=== PATIENT | female | born 1950 | race Caucasian/White ===

== ENCOUNTER 2019-08-25 09:06 | Outpatient (CLI) | payer MEDICARE, SELFPAY ==
--- NOTE | 2019-08-25 09:11 | EST_ITS ---
Patient Info Name: Radha Zaldivar Age: 68 years : 1950 Gender: Female Ht: 66 in Wt: 140 lbs BSA: 1.72 m2 BP: 139 / 69 mmHg Exam Date: 08/25/2019 10:11 AM Exam Location: [facility] Stress Patient Status: Outpatient Admit Date: 08/25/2019 Staff Ordering Physician: Mohsen Cueto PA-C Concaver: Yamila Ojeda RDCS Attending Provider: Mohsen Cueto PA-C Exercise Technologist: Salomón Bloom RDCS, RT Exercise Physician: Serge Michele DO Exam Type: CA stress echo Study Info Indications R07.9 - Chest pain, unspecified Treadmill exercise stress echocardiogram is performed. Summary 1. 1. Negative Tone exercise stress test for ischemic ST changes by ECG criteria. 2. 2. Good functional capacity, achieving 7 METs of workload. 3. 3. Appropriate HR response to exercise. 4. 4. Appropriate HR recovery at 1 minute post exercise. 5. 5. Negative stress echocardiogram for ischemia by wall motion analysis. 6. 6. Patient informed of the above results. Stress Echo Findings Left Ventricle Appropriate increase in LV endocardial thickening with systole. Appropriate augmentation of contractility with systole. No wall motion abnormality. Left Ventricle Normal LV systolic function, no wall motion abnormality. Appropriate increase in LV endocardial thickening with systole. Appropriate augmentation of contractility with systole. No wall motion abnormality. Protocol: Tone Stress ECG Details Stage: REST Duration (min): 0 min : 54 sec Speed (mph): 0.0 Grade (%): 0 HR (bpm): 69 SBP (mmHg): 139 DBP (mmHg): 69 METS: --- Stage: REST Duration (min): 8 min : 0 sec Speed (mph): 0.0 Grade (%): 0 HR (bpm): 81 SBP (mmHg): 139 DBP (mmHg): 69 METS: --- Stage: STAGE 1 Duration (min): 1 min : 0 sec Speed (mph): 1.7 Grade (%): 10 HR (bpm): 99 SBP (mmHg): 139 DBP (mmHg): 69 METS: --- Stage: STAGE 1 Duration (min): 2 min : 0 sec Speed (mph): 1.7 Grade (%): 10 HR (bpm): 114 SBP (mmHg): 139 DBP (mmHg): 69 METS: --- Stage: STAGE 1 Duration (min): 3 min : 0 sec Speed (mph): 1.7 Grade (%): 10 HR (bpm): 116 SBP (mmHg): 163 DBP (mmHg): 60 METS: --- Stage: STAGE 2 Duration (min): 1 min : 0 sec Speed (mph): 2.5 Grade (%): 12 HR (bpm): 128 SBP (mmHg): 163 DBP (mmHg): 60 METS: --- Stage: STAGE 2 Duration (min): 2 min : 0 sec Speed (mph): 2.5 Grade (%): 12 HR (bpm): 142 SBP (mmHg): 188 DBP (mmHg): 62 METS: --- Stage: STAGE 2 Duration (min): 3 min : 0 sec Speed (mph): 2.5 Grade (%): 12 HR (bpm): 147 SBP (mmHg): 188 DBP (mmHg): 62 METS: --- Stage: STAGE 3 Duration (min): 0 min : 9 sec Speed (mph): 0.0 Grade (%): 0 HR (bpm): 149 SBP (mmHg): 188 DBP (mmHg): 62 METS: --- Stage: RECOVERY Duration (min): 0 min : 50 sec Speed (mph): 0.0 Grade (%): 0 HR (bpm): 113 SBP (mmHg): 191 DBP (mmHg): 55 METS: ---
== END 2019-08-25 09:07 | disposition home or self-care (01) ==
PROVIDERS: PCP Family Medicine; Visit Provider Physician Assistant
DX: R07.89 Other chest pain (principal)
CPT/HCPCS: 93351

== ENCOUNTER 2019-09-03 12:53 | Outpatient (CLI) | payer MEDICARE, SELFPAY ==
--- NOTE | ~2019-09-03 | XR_ITS ---
EXAMINATION: XR chest 2V DATE: 09/03/2019 14:55 INDICATION: Chest pain TECHNIQUE: Frontal and lateral views of the chest are obtained COMPARISON: None available FINDINGS: The lungs are free of acute opacities. There is no pleural effusion or pneumothorax. The ca rdiomediastinal silhouette is normal. There is moderate thoracic spondylosis. IMPRESSION: 1. No acute cardiopulmonary abnormality. Reviewed, dictated and finalized at location A.
== END 2019-09-03 12:54 | disposition home or self-care (01) ==
LOC: ANHIMG 13:02
PROVIDERS: PCP Family Medicine; Visit Provider Physician Assistant
DX: R07.89 Other chest pain (principal)
CPT/HCPCS: 71046

== ENCOUNTER 2020-02-09 08:51 | Outpatient (CLI) | payer MEDICARE, SELFPAY ==
--- NOTE | ~2020-02-09 | MM_ITS ---
EXAMINATION: MM screening josy BI w devan HISTORY: Screening mammogram TECHNIQUE: Craniocaudal and mediolateral oblique 3-D tomosynthesis images were obtained and synthetic 2-D images were generated. CAD analysis was submitted and interpreted. COMPARISON: 02/03/2019, 01/05/2018, 12/20/2016 bilateral digital screening mammogram examinations BREAST PARENCHYMAL COMPOSITION: There are scattered areas of fibroglandular density. FINDINGS: There is no evidence of suspicious mass, calcification, or architectural distortion to sugg est malignancy in either breast. There has been no suspicious interval change. IMPRESSION: 1. No mammographic evidence of malignancy. 2. Recommend routine screening mammography in one year. BI-RADS Category 1: Negative Reviewed, dictated and finalized at location A.
== END 2020-02-09 08:52 | disposition home or self-care (01) ==
LOC: ANHIMG 08:53
PROVIDERS: PCP Family Medicine; Visit Provider Physician Assistant
DX: Z12.31 Encounter for screening mammogram for malignant neoplasm of breast (principal)
CPT/HCPCS: 77063; 77067

== ENCOUNTER 2020-05-04 06:57 | Outpatient (NON) | payer MEDICARE, SELFPAY ==
[2020-05-05 18:06] LABS: SARS-CoV-2 RNA PCR Negative
== END 2020-05-04 06:58 ==
LOC: ANHCOVIDDT 07:01
PROVIDERS: PCP Family Medicine; Visit Provider Physician Assistant
DX: J02.9 Acute pharyngitis, unspecified (principal); Z20.828 Contact with and (suspected) exposure to other viral communicable diseases
CPT/HCPCS: 87635; C9803; U0003

== ENCOUNTER → 2020-09-11 07:02 | Outpatient (CLI) | payer MEDICARE, OTHER, SELFPAY ==
[2020-09-11 20:54] LABS: SARS-CoV-2 RNA PCR Negative
== END ==
PROVIDERS: PCP Family Medicine; Visit Provider Internal Medicine Gastroenterology
DX: Z01.812 Encounter for preprocedural laboratory examination (principal); Z20.822 Contact with and (suspected) exposure to COVID-19
CPT/HCPCS: C9803; U0003; U0005

== ENCOUNTER 2020-09-15 04:38 | Day surgery (SDC) | payer MEDICARE, OTHER, SELFPAY ==
[2020-09-03 13:20] VITALS: BMI 22.0
[2020-09-15 07:26] VITALS: BP 104/68; PULSE 87; RESP 20; TEMP 36.6; O2SAT 97
[2020-09-15] MEDS: LACTATED RINGERS 1,000 ML 150 ML IV CONT (07:34)
--- NOTE | 2020-09-15 07:51 | PM.HPGS ---
History of Present Illness History of Present Illness Consent: Risks, benefits, and alternatives have been discussed and questions answered. Patient agrees to proceed with procedure. Chief complaint: dysphagia Narrative: Radha Zaldivar is a 69 year old female Referred for EGD because of dysphagia. She has pain when she attempts to swallow. This began when she noticed sores in her mouth about a month ago. Now she is having pain massive food goes down Review of Systems Review of Systems: All systems reviewed & are unremarkable except as noted in HPI and below PMFSH Past Medical History Medical History Esophageal reflux Generalized anxiety disorder Family History Family History Mother Hypertension Family history of cardiovascular disease Family history of coronary artery disease Father Malignant neoplasm of prostate Grandparent Malignant neoplasm of prostate Social History Social History Smoking status: Never smoker Second hand tobacco smoke exposure: No Alcohol intake: current Drinks per week: 1 Alcohol use details: WINE Substance use: never Substance use type: does not use Living arrangements: with family Gender identity (if verbalized by the patient): Female Spiritual care concerns: No Meds Home Medications and Allergies Home Medications Medication Instructions Recorded Confirmed Type clobetasol 0.05 % topical cream 1 applic TOPICAL DAILY 04/28/19 09/03/20 History secukinumab 150 mg/mL subcutaneous 150 mg SUB-Q [id number] 04/28/19 09/03/20 History syringe fluticasone propionate 50 2 spray INTRANASAL DAILY #16 ml 03/01/20 09/03/20 Rx mcg/actuation nasal spray,suspension Caltrate 600 plus D 2 tab-cap PO DAILY 09/03/20 09/03/20 History Centrum Silver Women 1 tab-cap PO DAILY 09/03/20 09/03/20 History Glucosamine Chondroitin 1,500 mg PO DAILY 09/03/20 09/03/20 History Vitamin D3 10,000 unit PO DAILY 09/03/20 09/03/20 History alprazolam 0.25 mg PO DAILY PRN 09/03/20 09/03/20 History ascorbic acid (vitamin C) 500 mg PO DAILY 09/03/20 09/03/20 History citalopram 40 mg PO DAILY 09/03/20 09/03/20 History omega 3-lqw-lad-fish oil [Fish Oil] 2 cap PO DAILY 09/03/20 09/03/20 History omeprazole 40 mg PO DAILY 09/03/20 09/03/20 History vitamin E 400 unit PO DAILY 09/03/20 09/03/20 History Allergies Allergy/AdvReac Type Severity Reaction Status Date / Time No Known Allergies Allergy Mild Verified 09/15/20 07:25 Vital Signs Vital Signs - 24 hr 09/15/20 07:26 Temperature 36.6 C Pulse Rate 87 Respiratory Rate 20 Blood Pressure 104/68 Pulse Oximetry 97 Exam Const: General: alert Orientation/consciousness: patient oriented x3 Resp: Auscultation: clear to auscultation bilaterally Cardio: Rhythm: regular rhythm GI: GI Palp: Yes Soft to palpation and No Tenderness to palpation present (GI) Neuro: General: patient oriented x3 Assessment and Plan Assessment and plan (1) Dysphagia: Qualifiers: Dysphagia type: esophageal phase Qualified Code(s): R13.10 - Dysphagia, unspecified Code(s): R13.10 - Dysphagia, unspecified Status: Acute Assessment and Plan: EGD with possible biopsy or dilatation or cautery.
--- NOTE | 2020-09-15 07:52 | WPDANESEPPF ---
Anes - Initial Pre Proc Eval Procedure: Operation Date: 09/15/20 08:30 Proposed Procedures p Esophagogastroduodenoscopy - Alejandro De Oliveira MD Date/Time: 09/15/20 07:52 Surgeon: Alejandro De Oliveira MD Pre Op Diagnosis: dysphagia Patient Data Age: 69 Gender: F Height: 5 ft 5 in Weight: 60 kg Last Vital Signs Temp 97.9 F 09/15/20 07:26 Pulse 87 09/15/20 07:26 Resp 20 09/15/20 07:26 BP 104/68 09/15/20 07:26 Pulse Ox 97 09/15/20 07:26 Allergies Allergy/AdvReac Type Severity Reaction Status Date / Time No Known Allergies Allergy Mild Verified 09/15/20 07:25 Home Medications Medication Instructions Recorded Confirmed Type clobetasol 0.05 % topical cream 1 applic TOPICAL DAILY 04/28/19 09/03/20 History secukinumab 150 mg/mL subcutaneous 150 mg SUB-Q [id number] 04/28/19 09/03/20 History syringe fluticasone propionate 50 2 spray INTRANASAL DAILY #16 ml 03/01/20 09/03/20 Rx mcg/actuation nasal spray,suspension Caltrate 600 plus D 2 tab-cap PO DAILY 09/03/20 09/03/20 History Centrum Silver Women 1 tab-cap PO DAILY 09/03/20 09/03/20 History Glucosamine Chondroitin 1,500 mg PO DAILY 09/03/20 09/03/20 History Vitamin D3 10,000 unit PO DAILY 09/03/20 09/03/20 History alprazolam 0.25 mg PO DAILY PRN 09/03/20 09/03/20 History ascorbic acid (vitamin C) 500 mg PO DAILY 09/03/20 09/03/20 History citalopram 40 mg PO DAILY 09/03/20 09/03/20 History omega 7-lfr-tks-fish oil [Fish Oil] 2 cap PO DAILY 09/03/20 09/03/20 History omeprazole 40 mg PO DAILY 09/03/20 09/03/20 History vitamin E 400 unit PO DAILY 09/03/20 09/03/20 History Patient hx anesthesia problems: none Family hx anesthesia problems: none PMFSH Past Medical History Medical History (Updated 09/15/20 @ 07:46 by Mehdi Baker MD) Esophageal reflux Generalized anxiety disorder Family History Family History Mother Hypertension Family history of cardiovascular disease Family history of coronary artery disease Father Malignant neoplasm of prostate Grandparent Malignant neoplasm of prostate Social History Social History Smoking status: Never smoker Second hand tobacco smoke exposure: No Alcohol intake: current Drinks per week: 1 Alcohol use details: WINE Substance use: never Substance use type: does not use Living arrangements: with family Gender identity (if verbalized by the patient): Female Spiritual care concerns: No Anes - Eval Final PreProcedure Day of Procedure 09/15/20 07:52 Patient weight: normal Heart: regular rate and rhythm Lungs: clear to auscultation Airway: Mallampati scale class II Neurological: alert and oriented Last oral intake: >/= 8 hours ASA classification: II Emergent: no Anesthetic plan: proceed Anesthesia type and monitoring: general GIVS and standard monitoring Informed Consent: The patient's anesthetic plan and its attendant risks and benefits were discussed with the patient/family/POA. Questions were solicited and answers provided to the satisfaction of the patient/family/POA.
[2020-09-15 08:36] VITALS: BP 112/70; PULSE 80; RESP 15; O2SAT 97
[2020-09-15 08:46] VITALS: BP 108/77; PULSE 85; RESP 20; O2SAT 96
[2020-09-15 08:56] VITALS: BP 115/71; PULSE 71; RESP 16; O2SAT 98
== END 2020-09-15 09:12 | disposition home or self-care (01) ==
PROVIDERS: PCP Family Medicine; Visit Provider Internal Medicine Gastroenterology
PROC: 0DJ08ZZ Inspection of Upper Intestinal Tract, Via Natural or Artificial Opening Endoscopic (ICD-10-PCS; CPT 43235; principal; 2020-09-15 08:30)
DX: R13.10 Dysphagia, unspecified (principal); K25.9 Gastric ulcer, unspecified as acute or chronic, without hemorrhage or perforation; K26.9 Duodenal ulcer, unspecified as acute or chronic, without hemorrhage or perforation; K21.01 Gastro-esophageal reflux disease with esophagitis, with bleeding; K31.7 Polyp of stomach and duodenum; F41.1 Generalized anxiety disorder
CPT/HCPCS: 43239; 43251; 87081; 88305; J2001; J2704; J7120

== ENCOUNTER 2021-04-05 08:20 | Outpatient (CLI) | payer MEDICARE, OTHER, SELFPAY ==
--- NOTE | ~2021-04-05 | MM_ITS ---
EXAMINATION: MM screening josy BI w devan HISTORY: Screening mammogram TECHNIQUE: Craniocaudal and mediolateral oblique 3-D tomosynthesis images were obtained and synthetic 2-D images were generated. CAD analysis was submitted and interpreted. COMPARISON: 02/09/2020, 02/03/2019, 12/26/2017 bilateral screening mammogram examinations BREAST PARENCHYMAL COMPOSITION: There are scattered areas of fibroglandular density. FINDINGS: There is no evidence of suspicious mass, calcification, or architectural distortion to sugg est malignancy in either breast. There has been no suspicious interval change. IMPRESSION: 1. No mammographic evidence of malignancy. 2. Recommend routine screening mammography in one year. BI-RADS Category 1: Negative Reviewed, dictated and finalized at location A. ATHERAPIST
== END 2021-04-05 08:21 | disposition home or self-care (01) ==
LOC: ANHIMG 08:23
PROVIDERS: PCP Family Medicine; Visit Provider Physician Assistant
DX: Z12.31 Encounter for screening mammogram for malignant neoplasm of breast (principal)
CPT/HCPCS: 77063; 77067

== ENCOUNTER 2022-04-07 10:18 | Outpatient (CLI) | payer MEDICARE, OTHER, SELFPAY ==
--- NOTE | ~2022-04-07 | MM_ITS ---
EXAMINATION: MM screening josy BI w devan HISTORY: Screening TECHNIQUE: Craniocaudal and mediolateral oblique 3-D tomosynthesis images were obtained and synthetic 2-D images were generated. CAD analysis was submitted and interpreted. COMPARISON: Comparison to multiple prior studies sequentially, with oldest reviewed study dated 11/2015. BREAST PARENCHYMAL COMPOSITION: There are scattered areas of fibroglandular density. FINDINGS: There is no evidence of suspicious mass, calcification, or architectural distortion to sugg est malignancy in either breast. There has been no suspicious interval change. IMPRESSION: 1. No mammographic evidence of malignancy. 2. Recommend routine screening mammography in one year. BI-RADS Category 1: Negative Reviewed, dictated and finalized at location A. A/C TECHNICIAN
== END 2022-04-07 10:19 | disposition home or self-care (01) ==
LOC: ANHIMG 10:20
PROVIDERS: PCP Emergency Medicine; Visit Provider Emergency Medicine
DX: Z12.31 Encounter for screening mammogram for malignant neoplasm of breast (principal)
CPT/HCPCS: 77063; 77067

== ENCOUNTER 2023-08-13 15:19 | Outpatient (CLI) | payer MEDICARE, OTHER, SELFPAY ==
--- NOTE | ~2023-08-13 | MM_ITS ---
EXAMINATION: MM screening josy BI w devan HISTORY: Screening mammogram TECHNIQUE: Craniocaudal and mediolateral oblique 3-D tomosynthesis images were obtained and synthetic 2-D images were generated. CAD analysis was submitted and interpreted. COMPARISON: 04/07/2022, 04/05/2021 bilateral screening mammogram examinations BREAST PARENCHYMAL COMPOSITION: There are scattered areas of fibroglandular density. FINDINGS: There is no evidence of suspicious mass, calcification, or architectural distortion to sugg est malignancy in either breast. There has been no suspicious interval change. IMPRESSION: 1. No mammographic evidence of malignancy. 2. Recommend routine screening mammography in one year. BI-RADS Category 1: Negative Reviewed, dictated and finalized at location A.
== END 2023-08-13 15:20 | disposition home or self-care (01) ==
LOC: ANHIMG 15:22
PROVIDERS: PCP Emergency Medicine; Visit Provider Emergency Medicine
DX: Z12.31 Encounter for screening mammogram for malignant neoplasm of breast (principal)
CPT/HCPCS: 77063; 77067

== ENCOUNTER 2024-02-12 12:29 | Outpatient (CLI) | payer MEDICARE, OTHER, SELFPAY ==
[2024-02-12 12:58] LABS: Basophils Absolute Auto 0.1 K/mm3 (0.0-0.1); Eosinophils Absolute Auto 0.1 K/mm3 (0-0.3); Eosinophils Percent Auto 2.2 % (0-4.4); Hematocrit 37.6 % (37.0-47.0); Hemoglobin 12.4 g/dL (12.0-15.0); Immature Granulocyte Absolute 0.02 K/mm3 (0.00-0.031); Immature Granulocyte Percent A 0.3 % (0-0.5); Lymphocytes Absolute Auto 1.56 K/mm3 (0.9-3.2); Lymphocytes Percent Auto 24.8 % (18.3-44.2); Mean Corpuscular Volume 90.8 fl (80-100); Mean Platelet Volume 9.3 fl (7.4-10.4); Monocytes Absolute Auto 0.5 K/mm3 (0.1-0.6); Monocytes Percent Auto 8.1 % (2.6-8.5); Neutrophils Percent Auto 63.6 % (45.5-73.1); Platelet Count Result 393 k/mm3 (150-375); Red Blood Count 4.14 M/mm3 (4.2-5.4); Red Cell Distribution Width 12.4 % (11.5-14.5); White Blood Count 6.3 K/mm3 (4.5-10.0)
[2024-02-12 16:50] LABS: Anion Gap 8 mmol/L (4-12); Blood Urea Nitrogen 19 mg/dL (7-17); Calcium 9.4 mg/dL (8.4-10.2); Carbon Dioxide 30 mmol/L (22-30); Chloride 99 mmol/L (98-107); Estimated Glomerular Filt Rate 55; Glucose 89 mg/dL (65-110); Potassium 4.3 mmol/L (3.4-5.0); Sodium 137 mmol/L (137-145)
== END 2024-02-12 12:30 | disposition home or self-care (01) ==
LOC: ANHLAB 12:33
PROVIDERS: PCP Emergency Medicine; Visit Provider Internal Medicine Hematology & Oncology
DX: D75.838 Other thrombocytosis (principal)
CPT/HCPCS: 36415; 80048; 85025

== ENCOUNTER 2024-08-15 09:54 | Outpatient (CLI) | payer MEDICARE, OTHER, SELFPAY ==
--- NOTE | ~2024-08-15 | MM_ITS ---
EXAMINATION: MM screening [facility] BI w devan HISTORY: Screening TECHNIQUE: Craniocaudal and mediolateral oblique 3-D tomosynthesis images were obtained and synthetic 2-D images were generated. CAD analysis was submitted and interpreted. COMPARISON: 08/13/2023 and dating back to 02/09/2020 BREAST PARENCHYMAL COMPOSITION: There are scattered areas of fibroglandular density. FINDINGS: Punctate calcifications are detected bilaterally, stable and benign in appearance. Stable parenchymal pattern without suspicious microcalcifications, architectural distortion, discrete masses or significant asymmetry. IMPRESSION: 1. No mammographic evidence of malignancy. 2. Recommend routine screening mammography in one year. BI-RADS Category 2: Benign finding(s). Reviewed, dictated and finalized at location A.
--- OUTSIDE RECORDS SUMMARY | 2024-08-15 10:42 | XMS_ITS | Clinical Summary ---
Author Organization [facility] Haim yang [facility] Address [address] [place] [address] Care Team Providers Care Ssis Etl Developer Name Role Phone Terence Manzano MD Primary Care Provider [phone] Allergies No known active allergies Medications citalopram (CeleXA) 40 mg tablet Take 20 mg by mouth daily. 1 Active ibuprofen (MOTRIN) 800 mg tablet TAKE 1 TABLET BY MOUTH EVERY 8 HOURS NEEDED FOR PAIN 1 Active secukinumab (Cosentyx Pen) 150 mg/mL Pen Injector Inject by subcutaneous injection one time only. Active omega-3 fatty acids-fish oil 300-1,000 mg Capsule Take by mouth daily. Active glucosamine-cho ndroitin (ARTHX DS) 500-400 mg Capsule Take 1 Capsule by mouth. Active calcium citrate-vitamin D3 (CITRACAL WITH VIT D) 200 mg-6.25 mcg (250 unit) Tablet Take by mouth. Activ e fexofenadine (JANIS) 180 mg tablet Take 180 mg by mouth daily. Active ASCORBIC ACID, VITAMIN C, ORAL Take by mouth. Active CALCIUM CARBONATE-VITAM IN D3 ORAL Take by mouth. Acti ve VITAMIN E ORAL Take by mouth. Active multivitamin/ir on/folic acid (CENTRUM COMPLETE ORAL) Take by mouth. Active aspirin (ECOTRIN EC) 81 mg Tablet, Delayed Release (E.C.) Take 81 mg by mouth daily. Active clobetasoL (TEMOVATE) 0.05 % Solution APPLY TO SCALP TWICE DAILY. 30 DAYS SUPPLY. 4 Active biotin/keratin (BIOTIN PLUS KERATIN ORAL) Take by mouth. 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 Encounters Date Type Department Care Team Description 08/06/2024 External Device Data STL ABSTRACTION Provider, Abstract 07/26/2024 External Device Data STL ABSTRACTION Provider, Abstract 07/25/2024 External Device Data STL ABSTRACTION Provider, Abstract 07/22/2024 External Device Data STL ABSTRACTION Provider, Abstract 07/08/2024 External Device Data STL ABSTRACTION Provider, Abstract 06/17/2024 External Device Data STL ABSTRACTION Provider, Abstract 06/11/2024 External Device Data STL ABSTRACTION Provider, Abstract 06/10/2024 External Device Data STL ABSTRACTION Provider, Abstract 06/04/2024 External Device Data STL ABSTRACTION Provider, Abstract from Last 3 Months Family History Medical History Relation Name Comments Cancer Father Heart Disease Mother Relation Name Status Comments Daughter Alive Father Mother Sister Alive Son Alive Social History Tobacco Use Types Packs/Day Years Used Date Smoking Tobacco: Never Smokeless Tobacco: Never Tobacco Cessation:Counseling Given: Not Answered Alcohol Use Standard Drinks/Week Comments Yes 0 (1 standard drink = 0.6 oz pur e alcohol) Comments Unknown Sex and Gender Information Value Date Recorded Sex Assigned at Not on file Legal Sex Female 12:22 PM PRESS T[employer] Gender Identity Not on file Sexual Orientation Not on file Last Filed Vital Signs Vital Sign Reading Time Taken Comments Blood Pressure 125/77 02/20/2024 10:16 AM CDT Pulse 68 02/20/2024 10:16 AM CDT Temperature 36.7 C (98 F) 02/20/2024 10:16 AM CDT Respiratory Rate 16 02/20/2024 10:16 AM CDT Oxygen Saturation 96% 02/20/2024 10:16 AM CDT Inhaled Oxygen Concentration - - Weight 60.3 kg (133 lb) 02/20/2024 10:16 AM CDT Height 166.4 cm (5' 5.5 ) 02/14/2022 11:10 AM CD T Body Mass Index 21.8 02/14/2022 11:10 AM CDT Plan of Treatment Upcoming Encounters Date Type Department Care Team (Late st Contact Info) Description 02/25/2025 10:00 AM CDT Office Visit [facility] Oncology and Hematology - [place] [address] [place] [address] Gurinder Bhakta MD [address] [place] [address] Health Maintenance Due Date Last Done Comments DTAP/TDAP/TD VACCINES (1 - Tdap) 11/07/1970 COLORECTAL SCREENING 11/07/1996 Colorectal Cancer Screening 11/07/1996 FIT-DNA Q 3 years 11/07/1996 FIT/FOBT Q 1 year 11/07/1996 Flex Sig/CT Colonography Q 5 years 11/07/1996 PNEUMOCOCCAL VACCINE 50+ YEA RS (1 of 1 - PCV) 11/07/2001 ZOSTER VACCINE (1 of 2) 11/07/2001 INFLUENZA VACCINE (#1) 2023 BREAST CANCER SCREENING 08/13/2024 08/14/19, 08/14/2023, 08/13/2023, Additional history exists RSV VACCINE (60+ or ) (1 - 1-dose 75+ series) 11/07/2026 OSTEOPOROSIS SCREENING Completed 02/03/2019 Insurance MEDICARE PART A AND B [facility] Care Teams Ssis Etl Developer Relationship Specialty Start Date End Date Terence Manzano MD [address] [place] [address] PCP - General Family Practice 02/14/23
--- OUTSIDE RECORDS SUMMARY | 2024-08-15 10:42 | XMS_ITS | Clinical Summary ---
Author Organization [facility] [employer] Address [address] [place] [address] Care Team Providers Care Labor Operator Name Role Phone Terence Manzano Primary Care Provider Unavailabl e Source Comments [facility] [employer],non-owned Affiliates and Associated Physician Practices is amultiple site organization consisting of ambulatory clinics and hospital sitesin [place], [place], [place] and [place]. This disclosure is being madepursuant to the Care Everywhere program and may not contain all information available regarding this patient. Last updated 18.[facility] [employer] Allergies No known active allergies Medications * Be aware that medications may not be up to date on this document. Alwaysverify current medications with the patient. Medication Sig Dispensed Refills Start Date End Date Status calcium citrate-vitamin D 200-6.25 MG-MCG tablet Take 1 (one) tablet by mouth once daily Active citalopram (CeleXA) 40 MG tablet Take 1 (one) tablet by mouth once daily 03/02/2021 Active fish oil/omega-3 fatty acids (Promega;Cardi-Ome ga 3) 1000 MG capsule Take by mouth once daily Active clobetasol (Temovate) 0.05 % ointmentIndication s:Psoriasis Apply to feet twice daily as needed. 30 days supply. 60 g 11 05/02/2023 Active fexofenadine (Hortensia) 180 MG tablet Take 1 (one) tablet by mouth once daily 30 tablet 11 05/02/2023 Active aspirin EC (Aspir-Low) 81 MG tablet Active Calcium-Magnesium- Vitamin D (CITRACAL CALCIUM +D3 PO) Active Glucosamine HCl 1500 MG Active Multiple Vitamins-Minerals (CENTRUM SILVER 50+WOMEN PO) Active Vitamin E (Tocopheryl) 180 MG (400 UNIT) capsule Active Ascorbic Acid (Vitamin C) 500 MG Active clobetasol (Temovate) 0.05 % solutionIndication s:Psoriasis,Lichen planopilaris Apply to scalp twice daily. 30 days supply. 50 mL 11 02/13/2024 Active secukinumab (Cosentyx) 150 MG/ML SOAJ penIndications:Oth er psoriasis Inject 300 (three hundred) mg subcutaneously every 28 days 2 mL 11 05/26/2024 Active Active Problems Problem Noted Date Diagnosed Date Reactive thrombocytosis 04/18/2021 Encounters Date Type Department Care Team Description 06/04/2024 Pharmacist Telephone/Documentat [facility] [address] [place] [address] Radha Mensah MD Medication Monitoring (COSENTYX SENSOREADY (300 MG) 150 MG/ML SOLUTION) from Last 3 Months Social History Tobacco Use Types Packs/Day Years Used Date Smoking Tobacco: Never Smokeless Tobacco: Never Tobacco Cessation:Counseling Given: Not Answered Sex and Gender Information Value Date Recorded Sex Assigned at Female 04/26/2022 2:18 PM PRIVATE BANKER Gender Identity Female 04/26/2022 2:18 PM PRIVATE BANKER Sexual Orientation Straight 04/26/2022 2: 18 PM PRIVATE BANKER Plan of Treatment Upcoming Encounters Date Type Department Care Team (Late st Contact Info) Description 02/11/2025 1:00 PM CDT Office Visit [facility] - Dermatology [address] [place] [address], [facility] [place] [id number] Radha Mensah MD [address] [place] [address] [place] [id number] Health Maintenance Due Date Last Done Comments BONE DENSITY TESTING 1950 COLOGUARD (AGES 45-75) - COL ON CA SCREENING 1950 COLON MONITORING 1950 COLONOSCOPY - COLON CA SCREENING 1950 CT COLONOGRAPHY - COLON CA SCREENING 1950 Colorectal Cancer Screening 1950 FIT - COLON CA SCREENING 1950 FLEX SIG - COLON CA SCREENING 1950 LIPID TESTING 1950 MAMMOGRAM 1950 MEDICARE AWV 12 MONTHS 1950 HEPATITIS C SCREENING 11/03/1969 DTAP/TDAP/TD VACCINES (1 - Tdap) 11/07/1970 PNEUMOCOCCAL VACCINE 50+ (1 of 1 - PCV) 11/07/2001 ZOSTER VACCINE (1 of 2) 11/07/2001 COVID-19 VACCINE (1 - 2023-2 5 season) 2024 INFLUENZA VACCINE (#1) 2024 DEPRESSION SCREENING 05/21/2024 Respiratory Syncytial Virus (RSV) Vaccine Pt: or over 60 yrs (1 - 1-dose 75+ series) 11/07/2026 HEPATITIS B VACCINE Aged Out No longe r eligible based on patient's age to complete this topic HIB VACCINE Aged Out No longer eligi ble based on patient's age to complete this topic HPV VACCINE Aged Out No longer eligi ble based on patient's age to complete this topic MENINGOCOCCAL (Group B) VACC INE SHARED DECISION-MAKING Aged Out No longer eligibl e based on patient's age to complete this topic MENINGOCOCCAL GROUPS A/C/Y/W VACCINE Aged Out No longer eligible b ased on patient's age to complete this topic Care Teams Labor Operator Relationship Specialty Start Date End Date Terence Manzano PCP - General 05/02/23
--- OUTSIDE RECORDS SUMMARY | 2024-08-15 10:42 | XMS_ITS | Encounter Summary ---
Author Organization [facility] Address [address] [place] [address] Care Team Providers Care Galvanizer Zinc Name Role Phone Terence Manzano Primary Care Provider Unavailabl e Reason for Visit * Reason Onset Date Comments MEDICATION REFILL 05/09/2023 Encounter Details Date Type Department Care Team (Late st Contact Info) Description 05/09/2023 Refill [facility] - Dermatology [address] [place] [address], [facility] [place] [address] Radha Mensah MD [facility] [address] DE[place] [phone] MEDICATION REFILL Social History Tobacco Use Types Packs/Day Years Used Date Smoking Tobacco: Never Assessed Sex and Gender Information Value Date Recorded Sex Assigned at Female 04/26/2022 2:18 PM PUBLIC HOUSING MANAGER Gender Identity Female 04/26/2022 2:18 PM PUBLIC HOUSING MANAGER Sexual Orientation Straight 04/26/2022 2: 18 PM PUBLIC HOUSING MANAGER documented as of this encounter Miscellaneous Notes * Telephone Encounter - Mari Jordan - 05/10/2023 10:56 AM CST LV 05/02/23 [place] 10/22/23 RTC September 2023 for TBSE, LPP, psoriasis f/u Mari Jordan / IC HOUSING MANAGER documented in this encounter Plan of Treatment Upcoming Encounters Date Type Department Care Team (Late st Contact Info) Description 02/11/2025 1:00 PM CDT Office Visit [facility] - Dermatology [address] [place] [address], [place] [address] Radha Mensah MD [address] [place] [address] [address] [place] [address] documented as of this encounter Visit Diagnoses Diagnosis Plaque psoriasis Other psoriasis documented in this encounter Care Teams Galvanizer Zinc Relationship Specialty Start Date End Date Terence Manzano PCP - General 05/02/23 documented as of this encounter
--- OUTSIDE RECORDS SUMMARY | 2024-08-15 10:42 | XMS_ITS | Encounter Summary ---
Author Organization [facility] Health Address [address] [facility] [place] [address] Care Team Providers Care Occup Ther Name Role Phone Jacoby Vance MD Primary Care Provider [phone] Terence Manzano Primary Care Provider Unavailabl e Reason for Visit * Reason Onset Date Comments Appointment 03/17/2022 Former pt needs appt Encounter Details Date Type Department Care Team (Late st Contact Info) Description 03/17/2022 Telephone [facility] [address] [facility], [facility] [place] [address] Khari Whitfield MD [address] [facility] [address] [place] [address] Appointment (Former pt needs appt) Social History Tobacco Use Types Packs/Day Years Used Date Smoking Tobacco: Never Assessed Sex and Gender Information Value Date Recorded Sex Assigned at Female 04/26/2022 2:18 PM ADMISSIONS COORDINATOR Gender Identity Female 04/26/2022 2:18 PM ADMISSIONS COORDINATOR Sexual Orientation Straight 04/26/2022 2: 18 PM ADMISSIONS COORDINATOR documented as of this encounter Miscellaneous Notes * Telephone Encounter - Jordon Marquez - 03/17/2022 1:26 PM CDT Former pt of Dr. Whitfield at a different location is calling to schedule Psoriasis f/u. Please callfor appt. documented in this encounter Plan of Treatment Upcoming Encounters Date Type Department Care Team (Late st Contact Info) Description 02/11/2025 1:00 PM CDT Office Visit [facility] - Dermatology [address] [place] [address], [place] [address] Radha Mensah MD [address] [place] [address] 3 [place] [address] documented as of this encounter Visit Diagnoses Not on filedocumented in this encounter Care Teams Occup Ther Relationship Specialty Start Date End Date Jacoby Vance MD [address] [place] [address] PCP - General 11/10/20 05/01/23 Terence Manzano PCP - General 05/02/23 documented as of this encounter
--- OUTSIDE RECORDS SUMMARY | 2024-08-15 10:42 | XMS_ITS | Encounter Summary ---
Author Organization [facility] Health Address [address] [facility] [place] [address] Care Team Providers Care Materials Branch Chief Name Role Phone Terence Manzano Primary Care Provider Unavailabl e Reason for Visit * Reason Onset Date Comments MEDICATION REFILL 05/07/2023 Encounter Details Date Type Department Care Team (Late st Contact Info) Description 05/07/2023 Refill [facility] Dermatology [address] [place] [address], [facility] [place] [address] Radha Mensah MD [facility]5 [facility] 3 [place] [phone] MEDICATION REFILL Social History Tobacco Use Types Packs/Day Years Used Date Smoking Tobacco: Never Assessed Sex and Gender Information Value Date Recorded Sex Assigned at Female 04/26/2022 2:18 PM DOCK BUILDER Gender Identity Female 04/26/2022 2:18 PM DOCK BUILDER Sexual Orientation Straight 04/26/2022 2: 18 PM DOCK BUILDER documented as of this encounter Miscellaneous Notes * Telephone Encounter - Mari Jordan - 05/07/2023 3:42 PM CST LV 05/02/23 NV 10/22/23 RTC September 2023 for TBSE, LPP, psoriasis f/u Mari Jordan BUILDER documented in this encounter Plan of Treatment Upcoming Encounters Date Type Department Care Team (Late st Contact Info) Description 02/11/2025 1:00 PM CDT Office Visit [facility] D[facility]ology [address] [facility], [place] [address] Radha Mensah MD [facility]5 [facility] 3 [place] [phone] documented as of this encounter Visit Diagnoses Diagnosis Plaque psoriasis Other psoriasis documented in this encounter Care Teams Materials Branch Chief Relationship Specialty Start Date End Date Terence Manzano PCP - General 05/02/23 documented as of this encounter
== END 2024-08-15 09:55 | disposition home or self-care (01) ==
LOC: ANHIMG 09:55
PROVIDERS: PCP Nurse Practitioner Family; Visit Provider Nurse Practitioner Family
DX: Z12.31 Encounter for screening mammogram for malignant neoplasm of breast (principal)
CPT/HCPCS: 77063; 77067

== ENCOUNTER 2024-08-20 12:45 | Outpatient (CLI) | payer MEDICARE, OTHER, SELFPAY ==
--- NOTE | ~2024-08-20 | DEXA_ITS ---
Bone Density Report Name: ИРИНА MONSALVE Age: 73 Sex: Female Ethnicity: White Date of : 1950 Indication: osteopenia; Referring Provider: JANAY SHANNON Study: Bone densitometry was performed. Exam Date: August 20, 2024 Accession number: [id number] Bone Density: Region BMD T-score Z-score Classification AP Spine(L1-L4) 1.147 0.9 3.2 Normal Femoral Neck (Left) 0.614 -2.1 -0.2 Osteopenia Total Hip (Left) 0.757 -1.5 0.1 Osteopenia Femoral Neck (Right) 0.649 -1.8 0.1 Osteopenia Total Hip (Right) 0.784 -1.3 0.4 Osteopenia Total Hip Mean 0.770 -1.4 0.3 Osteopenia World Health Organization criteria for BMD impression classify patients as: Normal (T-score at or above -1.0), Osteopenia (T-score between -1.0 and -2.5), or Osteoporosis (T-score at or below -2.5). 10-year Fracture Risk(1): Major Osteoporotic Fracture 12% Hip Fracture 2.8% Reported Risk Factors: [place] (), Neck BMD=0.614, BMI=21.8 (1) FRAX(R) Version 3.08. Fracture probability calculated for an untreated patient. Fracture probability may be lower if the patient has received treatment. Previous Exams: Region Exam Age BMD T-score BMD Change BMD Change Date g/cm2 vs Baseline vs Previous AP Spine (L1-L4) 08/20/2024 73 1.147 0.9 0.022 (1.9%) 0.022 (1.9%) 09/16/2012 61 1.126 0.7 Total Hip(Left) 08/20/2024 73 0.757 -1.5 -0.060 (-7.3%) -0.046 (-5.7%) 02/03/2019 68 0.803 -1.1 -0.014 (-1.7%) 0.026 (3.4%) 12/20/2016 66 0.776 -1.4 -0.040 (-4.9%) -0.025 (-3.1%) 10/21/2014 63 0.801 -1.2 -0.015 (-1.8%) -0.015 (-1.8%) 09/16/2012 61 0.816 -1.0 Total Hip(Right) 08/20/2024 73 0.784 -1.3 -0.168 (-17.7% -0.088 (-10.0% 02/03/2019 68 0.872 -0.6 -0.081 (-8.5%) -0.006 (-0.7%) 12/20/2016 66 0.878 -0.5 -0.075 (-7.8%) -0.024 (-2.7%) 10/21/2014 63 0.902 -0.3 -0.050 (-5.3%) -0.050 (-5.3%) 09/16/2012 61 0.953 0.1 *Denotes significance at 95% confidence level, LSC for AP Spine = 0.022 g/cm2, LSC for Total Hip = 0.027 g/cm2 # Denotes dissimilar scan types or analysis methods Clinical Information Provided by Patient: Has used the following medications: Vitamin D, Calcium Patient maximum height was 66 Menopause Age: 59 Drinks caffeinated beverages Onset of menses at age 13 Number of children 2 Impression: The patient has low bone mass, based on the Left Femoral Neck T-score. The patient has an estimated ten-year risk of hip fracture of 2.8% and an estimated ten-year risk of major fracture of 12%, based on the WHO FRAX algorithm. No significant bone loss was observed. Discussion: BONE DENSITY IS LOW AT ONE OR MORE SKELETAL SITES. This patient's lowest T-score is low at one or more skeletal sites. It meets the World Health Organization's (WHO) criteria for ?low bone mass? (T-score between -1.0 and -2.5). The patient's 10-year risk of fracture as calculated by FRAX is less than the threshold where pharmacological therapy is recommended by the National Osteoporosis Foundation (NOF). However, all treatment decisions require clinical judgment and consideration of individual patient factors, including patient preferences, comorbidities, previous drug use, risk factors not captured in the FRAX model (e.g., frailty, falls, vitamin D deficiency, increased bone turnover, interval significant decline in bone density) and possible under or overestimation of fracture risk by FRAX. The patient should follow a healthful lifestyle (good nutrition with adequate calcium and vitamin D, and appropriate weight-bearing exercise). Follow-Up: Consider repeating this study in 2 to 3 years to reassess this patient's status, or sooner if there is some new clinical indication. Reported by: CHITO on 08/20/2024 1:15:00 PM. Reviewed, dictated and finalized at location AVan MINA
--- OUTSIDE RECORDS SUMMARY | 2024-08-20 13:55 | XMS_ITS | Encounter Summary ---
Author Organization [facility] Health Address [address] [place] [address] Care Team Providers Care Debone Supervisor Name Role Phone Jacoby Vance MD Primary Care Provider Terence Manzano Primary Care Provider Unavailabl e Reason for Visit * Reason Onset Date Comments Appointment 03/17/2022 Former pt needs appt Encounter Details Date Type Department Care Team (Late st Contact Info) Description 03/17/2022 Telephone [facility] [address] [facility], [facility] [place] [address] Khari Whitfield MD [address] [facility] 600 [place] [address] Appointment (Former pt needs appt) Social History Tobacco Use Types Packs/Day Years Used Date Smoking Tobacco: Never Assessed Sex and Gender Information Value Date Recorded Sex Assigned at Female 04/26/2022 2:18 PM SUBSTANCE ABUSE SERVICES DIRECTOR Gender Identity Female 04/26/2022 2:18 PM SUBSTANCE ABUSE SERVICES DIRECTOR Sexual Orientation Straight 04/26/2022 2: 18 PM SUBSTANCE ABUSE SERVICES DIRECTOR documented as of this encounter Miscellaneous Notes * Telephone Encounter - Jordon Marquez - 03/17/2022 1:26 PM CDT Former pt of Dr. Whitfield at a different location is calling to schedule Psoriasis f/u. Please callfor appt. documented in this encounter Plan of Treatment Upcoming Encounters Date Type Department Care Team (Late st Contact Info) Description 02/11/2025 1:00 PM CDT Office Visit [facility] - Dermatology [address] [place] [address], [place] [address] Radha Mensah MD [address] [place] [address] [address] [place] [address] documented as of this encounter Visit Diagnoses Not on filedocumented in this encounter Care Teams Debone Supervisor Relationship Specialty Start Date End Date Jacoby Vance MD [address] [place] [address] PCP - General 11/10/20 05/01/23 Terence Manzano PCP - General 05/02/23 documented as of this encounter
--- OUTSIDE RECORDS SUMMARY | 2024-08-20 13:55 | XMS_ITS | Encounter Summary ---
Author Organization [facility] Health Address [address] [facility] [place] [address] Care Team Providers Care Linderman Operator Name Role Phone Terence Manzano Primary Care Provider Unavailabl e Reason for Visit * Reason Onset Date Comments MEDICATION REFILL 05/07/2023 Encounter Details Date Type Department Care Team (Late st Contact Info) Description 05/07/2023 Refill [facility] Dermatology [address] [place] [address], [facility] [place] [address] Radha Mensah MD [facility]5 [facility] 3 [place] [address] MEDICATION REFILL Social History Tobacco Use Types Packs/Day Years Used Date Smoking Tobacco: Never Assessed Sex and Gender Information Value Date Recorded Sex Assigned at Female 04/26/2022 2:18 PM APPRENTICE COSMETOLOGIST Gender Identity Female 04/26/2022 2:18 PM APPRENTICE COSMETOLOGIST Sexual Orientation Straight 04/26/2022 2: 18 PM APPRENTICE COSMETOLOGIST documented as of this encounter Miscellaneous Notes * Telephone Encounter - Mari Jordan - 05/07/2023 3:42 PM CST LV 05/02/23 NV 10/22/23 RTC September 2023 for TBSE, LPP, psoriasis f/u aMri Jordan ENTICE COSMETOLOGIST documented in this encounter Plan of Treatment Upcoming Encounters Date Type Department Care Team (Late st Contact Info) Description 02/11/2025 1:00 PM CDT Office Visit [facility]ology [address] [facility], [place] [address] Radha Mensah MD [facility]5 [facility] 3 [place] [phone] documented as of this encounter Visit Diagnoses Diagnosis Plaque psoriasis Other psoriasis documented in this encounter Care Teams Linderman Operator Relationship Specialty Start Date End Date Terence Manzano PCP - General 05/02/23 documented as of this encounter
--- OUTSIDE RECORDS SUMMARY | 2024-08-20 13:55 | XMS_ITS | Clinical Summary ---
Author Organization [facility] Address [address] [place] [address] Care Team Providers Care Sprayer Insecticide Name Role Phone Terence Manzano Primary Care Provider Unavailabl e Source Comments [facility],non-owned Affiliates and Associated Physician Practices is amultiple site organization consisting of ambulatory clinics and hospital sitesin [place], [place], [place] and [place]. This disclosure is being madepursuant to the Care Everywhere program and may not contain all information available regarding this patient. Last updated 18.[facility] Allergies No known active allergies Medications * [...] Department Care Team Description 06/04/2024 Pharmacist Telephone/Documentat [facility] [address] [place] [address] Radha Mensah MD Medication Monitoring (COSENTYX SENSOREADY (300 MG) 150 MG/ML SOLUTION) from Last 3 Months Social History Tobacco Use Types Packs/Day Years Used Date Smoking Tobacco: Never Smokeless Tobacco: Never Tobacco Cessation:Counseling Given: Not Answered Sex and Gender Information Value Date Recorded Sex Assigned at Female 04/26/2022 2:18 PM PESTICIDE CHEMIST Gender Identity Female 04/26/2022 2:18 PM PESTICIDE CHEMIST Sexual Orientation Straight 04/26/2022 2: 18 PM PESTICIDE CHEMIST Plan of Treatment Upcoming Encounters Date Type Department Care Team (Late st Contact Info) Description 02/11/2025 1:00 PM CDT Office Visit [facility] - Dermatology [address] [place] [address], [facility] [place] [phone] Radha Mensah MD [address] [place] [address] [place] [phone] Health Maintenance Due Date Last Done Comments [...] age to complete this topic Care Teams Sprayer Insecticide Relationship Specialty Start Date End Date Terence Manzano PCP - General 05/02/23
--- OUTSIDE RECORDS SUMMARY | 2024-08-20 13:55 | XMS_ITS | Encounter Summary ---
Author Organization [facility] Health Address [address] [facility] [place] [address] Care Team Providers Care Package Delivery Driver Name Role Phone Terence Manzano Primary Care Provider Unavailabl e Reason for Visit * Reason Onset Date Comments MEDICATION REFILL 05/09/2023 Encounter Details Date Type Department Care Team (Late st Contact Info) Description 05/09/2023 Refill [facility] Dermatology [address] [place] [address], [facility] [place] [address] Radha Mensah MD [facility]5 [facility] 3 [place] [address] MEDICATION REFILL Social History Tobacco Use Types Packs/Day Years Used Date Smoking Tobacco: Never Assessed Sex and Gender Information Value Date Recorded Sex Assigned at Female 04/26/2022 2:18 PM SHIRT LINE OPERATOR Gender Identity Female 04/26/2022 2:18 PM SHIRT LINE OPERATOR Sexual Orientation Straight 04/26/2022 2: 18 PM SHIRT LINE OPERATOR documented as of this encounter Miscellaneous Notes * Telephone Encounter - Mari Jordan - 05/10/2023 10:56 AM CST LV 05/02/23 NV 10/22/23 RTC September 2023 for TBSE, LPP, psoriasis f/u Mari Jrodan / T LINE OPERATOR documented in this encounter Plan of Treatment Upcoming Encounters Date Type Department Care Team (Late st Contact Info) Description 02/11/2025 1:00 PM CDT Office Visit [facility] - Dermatology [address] [place] [address], [place] [address] Radha Mensah MD [address] [place] [address] [address] [place] [address] documented as of this encounter Visit Diagnoses Diagnosis Plaque psoriasis Other psoriasis documented in this encounter Care Teams Package Delivery Driver Relationship Specialty Start Date End Date Terence Manzano PCP - General 05/02/23 documented as of this encounter
--- OUTSIDE RECORDS SUMMARY | 2024-08-20 13:55 | XMS_ITS | Clinical Summary ---
Author Organization [facility]aim [facility] Address [address] [facility] [place] [address] Care Team Providers Care Orthopedics Nurse Name Role Phone Terence Manzano MD Primary Care Provider [phone] Allergies No known active allergies Medications citalopram [...] on file Legal Sex Female 12:22 PM MAINFRAME APPLICATIONS DEVELOPER Gender Identity Not on file Sexual Orientation [...] Description 02/25/2025 10:00 AM CDT Office Visit [facility] Oncology and Hematology - Igor [address] [place] [address] Gurinder Bhakta MD [address] [facility] [address] [place] [address] Health Maintenance Due Date Last [...] 02/03/2019 Insurance MEDICARE PART A AND B [facility] Care Teams Orthopedics Nurse Relationship Specialty Start Date End Date Terence Manzano MD [address] [facility][Note 3] [place] [address] PCP - General Family Practice 02/14/23
== END 2024-08-20 12:46 | disposition home or self-care (01) ==
LOC: ANHIMG 12:46
PROVIDERS: PCP Nurse Practitioner Family; Visit Provider Nurse Practitioner Family
DX: Z78.0 Asymptomatic menopausal state (principal); M85.89 Other specified disorders of bone density and structure, multiple sites
CPT/HCPCS: 77080

== ENCOUNTER 2024-10-24 15:22 | Outpatient (CLI) | payer MEDICARE, OTHER, SELFPAY ==
--- NOTE | ~2024-10-24 | XR_ITS ---
EXAM: XR lumbar spine 2-3V DATE: 10/24/2024 15:43 HISTORY: Anesthesia of skin, tingling front Lt leg x 2 wks . COMPARISON: None available. FINDINGS: Moderate scoliosis. Large volume of colonic fecal material. Osteopenia. 5 nonrib-bearing l umbar-type vertebral bodies. Pedicles intact. 3 mm retrolisthesis at L5-S1. Loss of the normal lordos is. Vertebral body heights preserved. Disc severe narrowing and mild osteophytosis at all lumbar leve ls, with vacuum phenomenon at L2-3 through L5-S1. Moderate mid and lower lumbar facet hypertrophy and sclerosis. No fracture or dislocation. IMPRESSION: Grade 1 retrolisthesis at L5-S1. Multilevel severe lumbar degenerative disc disease. Moderate lower l umbar facet arthropathy. Moderate scoliosis. Large volume of colonic fecal material, correlate for clinical findings of constipation/impaction. Reviewed, dictated and finalized at location K. IMPRESSION: Grade 1 retrolisthesis at L5-S1. Multilevel severe lumbar degenerative disc dis ease. Moderate lower lumbar facet arthropathy. Moderate scoliosis. Large volume of colonic fecal material, correlate for clinical findings of cons tipation/impaction.
== END 2024-10-24 15:23 | disposition home or self-care (01) ==
LOC: GOSHIMG 15:23
PROVIDERS: PCP Nurse Practitioner Family; Visit Provider Nurse Practitioner Family
DX: M43.17 Spondylolisthesis, lumbosacral region (principal); M51.369 Other intervertebral disc degeneration, lumbar region without mention of lumbar back pain or lower extremity pain; M47.896 Other spondylosis, lumbar region; M41.86 Other forms of scoliosis, lumbar region
CPT/HCPCS: 72100

== ENCOUNTER 2025-02-19 09:12 | Outpatient (CLI) | payer MEDICARE, OTHER, SELFPAY ==
[2025-02-19 09:31] LABS: Hematocrit 40.0 % (37.0-47.0); Hemoglobin 13.1 g/dL (12.0-15.0); Immature Granulocyte Percent A 0.4 % (0-0.5); Lymphocytes Absolute Auto 1.40 K/mm3 (0.9-3.2); Mean Corpuscular HGB Conc 32.8 g/dl (32-36); Mean Corpuscular Hemoglobin 30.0 pg (26-34); Mean Corpuscular Volume 91.7 fl (80-100); Nucleated Red Blood Cells Absolute Auto 0.000 K/mm3 (0.0-0.012); Nucleated Red Blood Cells Perc 0.0 % (0.0-0.2); Platelet Count Result 380 k/mm3 (150-375); Red Blood Count 4.36 M/mm3 (4.2-5.4); White Blood Count 5.6 K/mm3 (4.5-10.0)
--- OUTSIDE RECORDS SUMMARY | 2025-02-19 09:36 | XMS_ITS | Encounter Summary ---
Author Organization [facility] Health Address [address] [facility] [place] [address] Care Team Providers Care Operational Communication Chief Name Role Phone Terence Manzano Primary Care Provider Unavailabl e Reason for Visit * Reason Onset Date Comments MEDICATION REFILL 05/09/2023 Encounter Details Date Type Department Care Team (Late st Contact Info) Description 05/09/2023 Refill [facility]5 [facility], [facility] [place] [address] Radha Mensah MD [facility]5 [facility] 3 [place] [address] MEDICATION REFILL Social History Tobacco Use Types Packs/Day Years Used Date Smoking Tobacco: Never Assessed Comments Unknown Sex and Gender Information Value Date Recorded Sex Assigned at Female 04/26/2022 2:18 PM DINING ROOM CASHIER Legal Sex Female 1:12 PM CDT Gender Identity Female 04/26/2022 2:18 PM DINING ROOM CASHIER Sexual Orientation Straight 04/26/2022 2: 18 PM DINING ROOM CASHIER documented as of this encounter Miscellaneous Notes * Telephone Encounter - Mari Jordan - 05/10/2023 10:56 AM CST LV 05/02/23 NV 10/22/23 RTC September 2023 for TBSE, LPP, psoriasis f/u Mari Jordan / NG ROOM CASHIER documented in this encounter Plan of Treatment Not on file documented as of this encounter Visit Diagnoses Diagnosis Plaque psoriasis Other psoriasis documented in this encounter Care Teams Operational Communication Chief Relationship Specialty Start Date End Date Terence Manzano PCP - General 05/02/23 documented as of this encounter
--- OUTSIDE RECORDS SUMMARY | 2025-02-19 09:36 | XMS_ITS | Encounter Summary ---
Author Organization [facility] Health Address [address] [facility] [place] [address] Care Team Providers Care Work Station Support Specialist Name Role Phone Jacoby Vance MD Primary Care Provider [phone] Terence Manzano Primary Care Provider Unavailabl e Reason for Visit * Reason Onset Date Comments Appointment 03/17/2022 Former pt needs appt Encounter Details Date Type Department Care Team (Late st Contact Info) Description 03/17/2022 Telephone [facility] [address] [facility], [facility] [place] [address] Khari Whitfield MD [address] [facility] [address] [place] [address] Appointment (Former pt needs appt) Social History Tobacco Use Types Packs/Day Years Used Date Smoking Tobacco: Never Assessed Comments Unknown Sex and Gender Information Value Date Recorded Sex Assigned at Female 04/26/2022 2:18 PM MALARIOLOGIST Legal Sex Female 1:12 PM CDT Gender Identity Female 04/26/2022 2:18 PM MALARIOLOGIST Sexual Orientation Straight 04/26/2022 2: 18 PM MALARIOLOGIST documented as of this encounter Miscellaneous Notes * Telephone Encounter - Jordon Marquez - 03/17/2022 1:26 PM CDT Former pt of Dr. Whitfield at a different location is calling to schedule Psoriasis f/u. Please callfor appt. documented in this encounter Plan of Treatment Not on file documented as of this encounter Visit Diagnoses Not on filedocumented in this encounter Care Teams Work Station Support Specialist Relationship Specialty Start Date End Date Jacoby Vance MD [address] [place] [address] PCP - General 11/10/20 05/01/23 Terence Manzano PCP - General 05/02/23 documented as of this encounter
--- OUTSIDE RECORDS SUMMARY | 2025-02-19 09:36 | XMS_ITS | Clinical Summary ---
Author Organization [facility] Address [address] [address] Care Team Providers Care Site Planner Name Role Phone Terence Manzano MD Primary Care Provider [phone] Allergies No known active allergies Medications citalopram [...] TO SCALP TWICE DAILY. 30 DAYS SUPPLY. Active biotin/keratin (BIOTIN PLUS KERATIN ORAL) Take by mouth. 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 Encounters Date Type Department Care Team Description 02/10/2025 External Device Data STL ABSTRACTION Provider, Abstract 02/03/2025 External Device Data STL ABSTRACTION Provider, Abstract 12/03/2024 External Device Data STL ABSTRACTION Provider, Abstract 12/02/2024 External Device Data STL ABSTRACTION Provider, Abstract [...] on file Legal Sex Female 12:22 PM FORESTRY WORKER Gender Identity Not on file Sexual Orientation [...] 10:16 AM CDT Height 166.4 cm (5' 5.5) 02/14/2022 11:10 AM CD T Body Mass Index 21.8 02/14/2022 11:10 AM CDT Plan of Treatment Upcoming Encounters Date Type Department Care Team (Late st Contact Info) Description 02/25/2025 10:00 AM CDT Office Visit [facility] Oncology and Hematology - [place] [address] [facility] [address] [place] [address] Gurinder Bhakta MD [address] [place] [address] Health Maintenance Due Date Last Done Comments DTAP/TDAP/TD VACCINES (1 - Tdap) 11/07/1970 Traditional Medicare (ACO) A nnual Wellness Visit 11/07/1970 COLORECTAL SCREENING 11/07/1996 Colorectal Cancer Screening 11/07/1996 FIT-DNA Q 3 years 11/07/1996 FIT/FOBT Q 1 year 11/07/1996 Flex Sig/CT Colonography Q 5 years 11/07/1996 PNEUMOCOCCAL VACCINE 50+ YEA RS (1 of 1 - PCV) 11/07/2001 ZOSTER VACCINE (1 of 2) 11/07/2001 INFLUENZA VACCINE (#1) 2024 BREAST CANCER SCREENING 08/15/2025 08/16/19, 08/15/2024, 08/14/2023, Additional history exists RSV VACCINE (60+ or ) (1 - 1-dose 75+ series) 11/07/2026 OSTEOPOROSIS SCREENING 08/20/2029 08/20/2024, [address] [place] [place] [address] MEDICARE PART A AND B [facility] [facility] Care Teams Site Planner Relationship Specialty Start Date End Date Terence Manzano MD [address] [place] [address] PCP - General Family Practice 02/14/23
--- OUTSIDE RECORDS SUMMARY | 2025-02-19 09:36 | XMS_ITS | Clinical Summary ---
Author Organization [facility] Address [address] [place] [address] Care Team Providers Care Television Host Name Role Phone Terence Manzano Primary Care Provider Unavailabl e Source Comments [facility],non-owned Affiliates and Associated Physician Practices is amultiple site organization consisting of ambulatory clinics and hospital sitesin [place], [place], [place] and [place]. This disclosure is being madepursuant to the Care Everywhere program and may not contain all information available regarding this patient. Last updated 18.[facility] Allergies No known active allergies Medications * Be aware that medications may not be up to date on this document. Alwaysverify current medications with the patient. calcium citrate-vitamin D 200-6.25 MG-MCG tablet Take 1 (one) tablet by mouth once daily Active citalopram (CeleXA) 40 MG tablet Take 1 (one) tablet by mouth once daily 03/02/20 21 Active fish oil/omega-3 fatty acids (Promega;Cardi-O june 3) 1000 MG capsule Take by mouth once daily Active clobetasol (Temovate) 0.05 % ointmentIndicati ons:Psoriasis Apply to feet twice daily as needed. 30 days supply. 60 g 05/02/20 23 Active fexofenadine (Hortensia) 180 MG tablet Take 1 (one) tablet by mouth once daily 30 tablet 11 05/02/20 23 Active aspirin EC (Aspir-Low) 81 MG tablet Active Calcium-Magnesiu m-Vitamin D (CITRACAL CALCIUM +D3 PO) Acti ve Glucosamine HCl 1500 MG Active Multiple Vitamins-Mineral s (CENTRUM SILVER 50+WOMEN PO) Active Vitamin E (Tocopheryl) 180 MG (400 UNIT) capsule Active Ascorbic Acid (Vitamin C) 500 MG Active secukinumab (Cosentyx) 150 MG/ML SOAJ penIndications:O ther psoriasis Inject 300 (three hundred) mg subcutaneously every 28 days 2 mL 05/26/19 25 Active clobetasol (Temovate) 0.05 % solutionIndicati ons:Lichen planopilaris,Pso riasis Apply to scalp twice daily. 30 days supply. 50 mL 02/12/20 25 Active clobetasol (Temovate) 0.05 % solutionIndicati ons:Psoriasis,Li berman planopilaris Apply to scalp twice daily. 30 days supply. 50 mL 02/13/20 24 025 Discontin ued(Clini phuong Decision) Active Problems Problem Noted Date Diagnosed Date Reactive thrombocytosis 04/18/2021 Encounters Date Type Department Care Team Description 02/11/2025 1:00 PM CDT Office Visit [facility] - Dermatology [address] [place] [id number] Radha Mensah MD Other psoriasis (Primary Dx); Lichen planopilaris; High risk medications (not anticoagulants) long-term use; Multiple benign nevi; Seborrheic keratoses; Lentigo; Other pruritus; Psoriasis 02/11/2025 Travel from Last 3 Months Social History Tobacco Use Types Packs/Day Years Used Date Smoking Tobacco: Never Smokeless Tobacco: Never Tobacco Cessation:Counseling Given: Not Answered Comments Unknown Sex and Gender Information Value Date Recorded Sex Assigned at Female 04/26/2022 2:18 PM FINANCIAL INVESTMENT MANAGER Legal Sex Female 1:12 PM CDT Gender Identity Female 04/26/2022 2:18 PM FINANCIAL INVESTMENT MANAGER Sexual Orientation Straight 04/26/2022 2: 18 PM FINANCIAL INVESTMENT MANAGER Plan of Treatment Health Maintenance Due Date Last Done Comments BONE DENSITY TESTING 1950 COLOGUARD (AGES 45-75) - COLON CA SCREENING 1950 COLON MONITORING 1950 COLONOSCOPY [...] 11/07/2001 ZOSTER VACCINE (1 of 2) 11/07/2001 DEPRESSION SCREENING 05/21/2024 COVID-19 VACCINE (3 - 2024- season) 2025 08/05/2020, 07/13/2020 INFLUENZA VACCINE (#1) 2025 , 03/06/2022, 04/07/2021, Additional history exists Respiratory Syncytial Virus (RSV) Vaccine Pt: or [...] to complete this topic MENINGOCOCCAL (Group B) VACCINE SHARED DECISION-MAKING Aged Out No longer eligible based on patient's age to complete this topic MENINGOCOCCAL GROUPS A/C/Y/W VACCINE Aged Out No longer eligible based on patient's age to complete this topic Insurance [address] [place] [address] MEDICARE MEDICARE Care Teams Television Host Relationship Specialty Start Date End Date Terence Manzano PCP - General 05/02/23
--- OUTSIDE RECORDS SUMMARY | 2025-02-19 09:36 | XMS_ITS | Encounter Summary ---
Author Organization [facility] Address [address] [place] [address] Care Team Providers Care Service Worker Helper Name Role Phone Terence Manzano Primary Care Provider Unavailabl e Reason for Visit * Reason Onset Date Comments MEDICATION REFILL 05/07/2023 Encounter Details Date Type Department Care Team (Late st Contact Info) Description 05/07/2023 Refill [facility] - Dermatology [facility] [facility] [facility] [place] [address] Radha Mensah MD [facility] [facility] [address] [place] [id number] MEDICATION REFILL Social History Tobacco Use Types Packs/Day Years Used Date Smoking Tobacco: Never Assessed Comments Unknown Sex and Gender Information Value Date Recorded Sex Assigned at Female 04/26/2022 2:18 PM ROCK CLIMBING INSTRUCTOR Legal Sex Female 1:12 PM CDT Gender Identity Female 04/26/2022 2:18 PM ROCK CLIMBING INSTRUCTOR Sexual Orientation Straight 04/26/2022 2: 18 PM ROCK CLIMBING INSTRUCTOR documented as of this encounter Miscellaneous Notes * Telephone Encounter - Mari Jordan - 05/07/2023 3:42 PM CST [place] 05/02/23 [place] 10/22/23 RTC September 2023 for TBSE, LPP, psoriasis f/u Mari Jordan CLIMBING INSTRUCTOR documented in this encounter Plan of Treatment Not on file documented as of this encounter Visit Diagnoses Diagnosis Plaque psoriasis Other psoriasis documented in this encounter Care Teams Service Worker Helper Relationship Specialty Start Date End Date Terence Manzano PCP - General 05/02/23 documented as of this encounter
[2025-02-19 10:12] LABS: Anion Gap 5 mmol/L (4-12); Blood Urea Nitrogen 14 mg/dL (7-17); Calcium 9.2 mg/dL (8.4-10.2); Carbon Dioxide 29 mmol/L (22-30); Chloride 103 mmol/L (98-107); Estimated Glomerular Filt Rate 60; Glucose 90 mg/dL (65-110); Potassium 4.4 mmol/L (3.4-5.0); Sodium 137 mmol/L (137-145)
== END 2025-02-19 09:13 | disposition home or self-care (01) ==
LOC: ANHLAB 09:13
PROVIDERS: PCP Nurse Practitioner Family; Visit Provider Internal Medicine Hematology & Oncology
DX: D75.838 Other thrombocytosis (principal)
CPT/HCPCS: 36415; 80048; 85025

== ENCOUNTER 2025-03-07 13:55 | Emergency (ER) | payer MEDICARE, OTHER, SELFPAY ==
--- NOTE | 2025-03-07 14:13 | ED.EYEPROB ---
HPI - Eye Problem General Chief complaint: Eye Problems Stated complaint: Eye Irritation Patient presents to the [facility] with complaints of irritation, drainage, redness to left eye that began 2 days ago. Patient noted using cool compresses to the area it kept an eye on symptoms and today noticed some drainage from the area in your taken getting a little worse. Patient does report a long history of sinus problems but denies any current increase in symptoms. Denies vision changes, loss of vision, or significant eye pain. Related Data Home Medications ?Medication ?Instructions ?Recorded ?Confirmed ?Last Taken ?Type secukinumab 150 mg/mL subcutaneous 150 mg subcut [id number] 04/28/19 03/07/25 09/14/20 History syringe (Cosentyx 300 mg/2 Syringes () Caltrate 600 plus D 2 tab-cap PO DAILY 09/03/20 03/07/25 09/14/20 History Centrum Silver Women 1 tab-cap PO DAILY 09/03/20 03/07/25 09/14/20 History Glucosamine Chondroitin 1,500 mg PO DAILY 09/03/20 03/07/25 09/14/20 History ascorbic acid (vitamin C) 500 mg 500 mg PO DAILY 09/03/20 03/07/25 09/14/20 History tablet omega 2-xcm-sdu-fish oil 1,200 mg 2 cap PO DAILY 09/03/20 03/07/25 09/14/20 History (144 mg-216 mg) capsule (Fish Oil) vitamin E 268 mg (400 unit) capsule 400 unit PO DAILY 09/03/20 03/07/25 09/14/20 History cholecalciferol (vitamin D3) 25 25 mcg PO DAILY 03/07/21 03/07/25 Unknown History mcg (1,000 unit) capsule aspirin 81 mg chewable tablet 81 mg PO DAILY 07/04/21 03/07/25 Unknown History (Children's Aspirin) biotin 10,000 mcg capsule mcg PO 04/06/23 10/24/24 Unknown History clobetasol 0.05 % scalp solution 1 applic topical DAILY 04/06/23 03/07/25 Unknown History fluoride (sodium) 1.1 % dental applic PO 05/20/24 10/24/24 Unknown History cream (Denta 5000 Plus) Allergies Allergy/AdvReac Type Severity Reaction Status Date / Time No Known Allergies Allergy Mild Verified 03/07/25 14:13 Review of Systems Constitutional: Constitutional: Reports as per HPI, Denies chills, Denies fatigue, Denies fever(s) and Denies weakness Eyes: Eyes: Reports as per HPI, Denies change in vision and Denies photophobia Comments: drainage, irritation, and redness ENT: Reports as per HPI, Denies vertigo, Denies dizziness, Denies nasal congestion and Denies sore throat Cardiovascular: Cardiovascular: Reports no additional cardiovascular complaints Respiratory: Respiratory: Reports no additional respiratory complaints Gastrointestinal: Gastrointestinal: Reports no additional gastrointestinal complaints Genitourinary: Genitourinary: Reports no additional female genitourinary complaints Musculoskeletal: Musculoskeletal: Reports no additional musculoskeletal complaints Integumentary/Breasts: Skin/Breast: Reports as per HPI, Denies erythema and Denies rash Neurologic: Reports as per HPI, Denies vertigo, Denies dizziness and Denies headache(s) Psychiatric: Psychiatric: Reports no additional psychiatric complaints Endocrine: Endocrine: Reports no additional endocrine complaints Hematologic/Lymphatic: Hematologic/Lymphatic: Reports no additional hematologic/lymphatic complaints Allergic/Immunologic: Allergic/Immunologic: Reports as per HPI Comments: seasonal allergies, sinus problems [facility] Past Medical History Medical History (Updated 03/07/25 @ 14:25 by DONOVAN InfanteC) Esophageal reflux Generalized anxiety disorder Surgical History Surgical History (Updated 10/24/24 @ 15:01 by Viky Varghese MA) H/O cataract removal with insertion of prosthetic lens Family History Family History Mother Hypertension Family history of cardiovascular disease Family history of coronary artery disease Father Malignant neoplasm of prostate Grandparent Malignant neoplasm of prostate Social History Social History Smoking status: Never smoker Second hand tobacco smoke exposure: No Alcohol intake: current Drinks per week: 1 Alcohol use details: WINE Substance use: never Substance use type: does not use Lack of Transportation: No Lack of Food: Never True Current Housing: I Have Housing Concerned About Future Housing: No Difficulty Paying Gas/Electric Bills: No Difficulty Paying for Meds: No Currently Unemployed: No Education: High School Diploma/GED Difficulty w/ Childcare or Family Care: No Living arrangements: with family Gender identity (if verbalized by the patient): Female Spiritual care concerns: No Exam Const: General: healthy appearing and no acute distress Nutritional Appearance: well nourished Orientation/consciousness: patient oriented x3 Limitations: no limitations HENMT: Head: normal to inspection Ears: external ears normal and TM's normal bilaterally Face/Nose/Sinus: Normal external nose present and Normal nares present Face and sinus: normal facial exam and sinuses nontender Mouth: Yes Normal oral and palatal mucosa present, Yes lip normal and Yes moist mucous membranes Throat: posterior oropharynx normal Eyes: Conjunctivae: conjunctival abnormality ( injected, exudate noted) left Pupils: Equal, round and reactive pupils present EOM: EOMs intact bilaterally Direct Ophthalmoscopy: no photophobia Resp: Effort & Inspection: normal respiratory effort Auscultation: clear to auscultation bilaterally Cardio: Rate: regular rate Rhythm: regular rhythm Skin: General skin exam: normal color Rashes: no rashes Wounds: no wounds Neuro: General: patient oriented x3 Speech: normal speech Gait exam (Neuro): Normal gait present Psych: Mental Status: mental status grossly normal Affect: normal affect Attitude: cooperative Course Course Level of Care: Express Care Visit MDM - Eye Problem MDM Narrative Medical decision making narrative: The patient was evaluated by myself in the express care. History is obtained from patient who is an independent historian and physical exam was performed. Available medical records were reviewed at this time. Exam findings show no acute concerns or changes; patient is non-toxic appearing and is in no distress. Patient is appropriate for outpatient treatment and follow-up. I have evaluated and discussed social determinants of health with the patient that could potentially impact subsequent diagnosis and treatment plans. Differential diagnosis and treatment plan were discussed with the patient. Patient agrees with discussion and after shared medical decision making agrees with plan of care. All questions were answered to the patient's satisfaction. Differential Diagnosis Differential diagnosis: Likely conjunctivitis, periorbital cellulitis, corneal ulcer and ruptured globe Medical Records Attestation: I reviewed the patient's medical records. Discharge Plan Discharge Clinical Impression: Bacterial conjunctivitis Patient Disposition: Home Condition: Stable Instructions: Antibiotic Form, How to Use Eye Drops (ED), Conjunctivitis (ED) Additional Instructions: Your exam today shows Conjunctivitis, You have been given a prescription for eye drops. Use the eye drops as instructed. If you are not better in two (2) days, you need to follow up with an iron plastic bullet maker. Do not rub the eye or put anything else in the eye, this can cause abrasions (scratches) on the eye or lead to vision loss. Also it is important not to touch the tube or tip of drops to the eye, as this can cause further infection. Wash your hands very well before instilling the medication. Handwashing can help prevent the spread of disease. Follow up with PCP in 7-10 days Return to ER for problems Contact [facility] if you need an Supervisor [place] [facility] Department [] Patient Language: Gabonese Prescriptions: New polymyxin B sulf-trimethoprim 10,000 unit- 1 mg/mL drops 1 drp RIGHT EYE Q3H 7 Days Qty: 10 0RF Rx Instructions: while awake; do not exceed 6 doses in 24 hours No Action aspirin [Children's Aspirin] 81 mg tablet,chewable 81 mg PO DAILY Cosentyx (2 Syringes) 150 mg/mL syringe 150 mg SUB-Q [id number] cholecalciferol (vitamin D3) 25 mcg (1,000 unit) capsule 25 mcg PO DAILY biotin 10,000 mcg capsule PO clobetasol 0.05 % solution 1 applic topical DAILY fluoride (sodium) [Denta 5000 Plus] 1.1 % cream PO alprazolam 0.25 mg tablet 0.25 mg PO DAILY PRN (Reason: Anxiety) Qty: 30 0RF ascorbic acid (vitamin C) 500 mg Tablet 500 mg PO DAILY vitamin E 400 unit Capsule 400 unit PO DAILY omega 3-rta-bsy-fish oil [Fish Oil] 1,200 (144-216) mg Capsule 2 cap PO DAILY Caltrate 600 plus D 2 tab-cap PO DAILY Centrum Silver Women 1 tab-cap PO DAILY Glucosamine Chondroitin 1,500 mg PO DAILY citalopram 20 mg tablet 20 mg PO DAILY Qty: 90 1RF Follow-up/Referrals: Beverly Horne FNP-C [Primary Care Provider, Family Practice] Time of Disposition: 14:26
[2025-03-07 14:14] VITALS: BP 132/75; PULSE 72; RESP 18; TEMP 36.7; O2SAT 98
== END 2025-03-07 14:32 | disposition home or self-care (01) ==
PROVIDERS: Emergency Provider Nurse Practitioner Family; PCP Nurse Practitioner Family
DX: H10.9 Unspecified conjunctivitis (principal); K21.9 Gastro-esophageal reflux disease without esophagitis; F41.1 Generalized anxiety disorder
CPT/HCPCS: 99213; G0463